=== PATIENT | male | born 1990 | race Caucasian/White ===

== ENCOUNTER 2016-09-14 13:20 | Emergency (ER) | payer SELFPAY ==
[2016-09-14 13:29] VITALS: BP 167/77
--- NOTE | 2016-09-14 13:56 | ER Document Report ---
HPI - HPI Patient complains to provider of: dental pain Pain Level: 5 Context: 26 yo male c/o dental pain x 3 days. Associated Symptoms: None Exacerbated by: Denies Relieved by: Denies Similar symptoms previously: No - ROS Systems Reviewed and Negative: Yes All other systems reviewed and negative - DERM Skin Color: Normal Past Medical History - General Information source: Patient - Social History Smoking Status: Current Every Day Smoker Frequency of alcohol use: None Drug Abuse: None Lives with: Family Family History: None - Medical History Medical History: Negative Renal/ Medical History: Denies: Hx Peritoneal Dialysis Vertical Provider Document - CONSTITUTIONAL Agree With Documented VS: Yes Exam Limitations: No Limitations - INFECTION CONTROL TRAVEL OUTSIDE OF THE [place] IN LAST 30 DAYS: No - HEENT HEENT: Atraumatic, PERRLA Mouth Diagram: 1 - fractured tooth. + pain - NECK Neck: Normal Inspection, Supple - RESPIRATORY O2 Sat by Pulse Oximetry: 96 - CARDIOVASCULAR Cardiovascular: Regular Rate, Regular Rhythm - MUSCULOSKELETAL/EXTREMETIES Musculoskeletal/Extremeties: MAEW, FROM - NEURO Level of Consciousness: Awake, Alert, Appropriate - DERM Integumentary: Warm, Dry, No Rash Course - Vital Signs Vital signs: Temp Pulse Resp BP Pulse Ox 98.4 F 51 L 18 167/77 H 96 09/14/16 13:28 09/14/16 13:28 09/14/16 13:28 09/14/16 13:28 09/14/16 13:28 Discharge - Discharge Clinical Impression: Pain, dental Condition: Stable Disposition: HOME, SELF-CARE Instructions: Penicillin V K ([facility]), Ultram ([facility]) Additional Instructions: meds as prescribed follow up with dental for further evaluation and treatment Prescriptions: Benzonatate [Tessalon Perles 100 mg Capsule] 100 mg PO Q8HP PRN #20 capsule PRN Reason: Amoxicillin 500 mg PO TID #21 tablet Tramadol HCl [Ultram 50 mg Tablet] 50 mg PO ASDIR PRN #20 tablet PRN Reason: Forms: Elevated Blood Pressure
== END 2016-09-14 14:32 ==
LOC: ER 13:20
DX: K08.89 Other specified disorders of teeth and supporting structures (principal); F17.200 Nicotine dependence, unspecified, uncomplicated
CPT/HCPCS: 99282

== ENCOUNTER 2016-10-02 17:51 | Emergency (ER) | payer SELFPAY ==
[2016-10-02 18:04] VITALS: BP 124/80
[2016-10-02] MEDS ORDERED: DIPH/PERTUSS(ACELL)/TETANUS VAC/PF 0.5 ML SYR (>=10YO) IM ONE (18:18)
--- NOTE | 2016-10-02 18:18 | ER Document Report ---
ED Medical Screen (RME) - General Chief Complaint: Laceration Stated Complaint: RIGHT HAND INJURY/LACERATION Time Seen by Provider: 10/02/16 18:17 Mode of Arrival: Ambulatory Information source: Patient TRAVEL OUTSIDE OF THE [place] 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 Bleeding is controlled . Tet is OOD - Related Data Allergies/Adverse Reactions: diphenhydramine [From Benadryl] Allergy (Verified 09/14/16 13:26) Past Medical History Renal/ Medical History: Denies: Hx Peritoneal Dialysis Physical Exam - Vital signs Vitals: Temp Pulse Resp BP Pulse Ox 98.6 F 70 22 H 124/80 99 10/02/16 17:53 10/02/16 17:53 10/02/16 17:53 10/02/16 17:53 10/02/16 17:53 Course - Vital Signs Vital signs: Temp Pulse Resp BP Pulse Ox 98.6 F 70 22 H 124/80 99 10/02/16 17:53 10/02/16 17:53 10/02/16 17:53 10/02/16 17:53 10/02/16 17:53
--- NOTE | 2016-10-02 18:37 | ER Document Report ---
ED Wound - General Chief Complaint: Laceration Stated Complaint: RIGHT HAND INJURY/LACERATION Time Seen by Provider: 10/02/16 18:17 Mode of Arrival: Ambulatory Notes: The patient is a 26-year-old male, past medical history panic attacks, presents with right hand injury after he was playing with knives and accidentally stabbed his hands. He is very anxious on my evaluation. Patient is unsure of his last tetanus shot. 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 Patient denies numbness, tingling, but is having difficulty extending his fourth finger. No active bleeding and he has no other injuries. TRAVEL OUTSIDE OF THE [place] IN LAST 30 DAYS: No - Related Data Allergies/Adverse Reactions: diphenhydramine [From Benadryl] Allergy (Verified 09/14/16 13:26) Past Medical History - General Information source: Patient - Social History Smoking Status: Current Every Day Smoker Drug Abuse: Marijuana Family History: None Renal/ Medical History: Denies: Hx Peritoneal Dialysis Review of Systems - Review of Systems Notes: REVIEW OF SYSTEMS: CONSTITUTIONAL: -fevers, -chills EENT: -eye pain, -difficulty swallowing, -nasal congestion CARDIOVASCULAR:-chest pain, -syncope. RESPIRATORY: -cough, -SOB GASTROINTESTINAL: -abdominal pain, - nausea, -vomiting, -diarrhea GENITOURINARY: -dysuria, -hematuria MUSCULOSKELETAL: -back pain, -neck pain SKIN: +right hand wound, -rash or skin lesions. HEMATOLOGIC: -easy bruising or bleeding. LYMPHATIC: -swollen, enlarged glands. NEUROLOGICAL: -altered mental status or loss of consciousness, -headache, - neurologic symptoms PSYCHIATRIC: -anxiety, -depression. ALL OTHER SYSTEMS REVIEWED AND NEGATIVE. Physical Exam - Vital signs Vitals: Temp Pulse Resp BP Pulse Ox 98.6 F 70 22 H 124/80 99 10/02/16 17:53 10/02/16 17:53 10/02/16 17:53 10/02/16 17:53 10/02/16 17:53 - Notes Notes: PHYSICAL EXAMINATION: GENERAL: Well-appearing, well-nourished and in no acute distress. HEAD: Atraumatic, normocephalic. EYES: Pupils equal round and reactive to light, extraocular movements intact, sclera anicteric, conjunctiva are normal. ENT: nares patent, oropharynx clear without exudates. Moist mucous membranes. NECK: Normal range of motion, supple without lymphadenopathy LUNGS: Breath sounds clear to auscultation bilaterally and equal. No wheezes rales or rhonchi. HEART: Regular rate and rhythm without murmurs ABDOMEN: Soft, nontender, normoactive bowel sounds. No guarding, no rebound. No masses appreciated. EXTREMITIES: Right hand with multiple lacerations on palmar surface of 2nd-5th fingers. 2nd digit with 2 cm flap, brisk capillary refill, all flexor tendons and sensation intact. 3rd digit with 3 cm linear laceration, brisk capillary refill, all flexor tendons and sensation intact. 4th digit with 2 cm linear laceration, brisk capillary refill, sensation intact, unable to flex 4th PIP joint. 5th digit with 2 cm linear laceration, brisk capillary refill, all flexor tendons and sensation intact NEUROLOGICAL: Cranial nerves grossly intact. Normal speech, normal gait. Normal sensory and motor exams. PSYCH: Normal mood, normal affect. Course - Re-evaluation Re-evalutation: Patient with multiple right finger lacerations after he grabbed a knife. Tetanus updated. X-ray does not show any fractures. Concern for fourth flexor tendon injury due to inability to flex the 4th PIP. Lacerations repaired after extensive cleaning and patient placed in a volar splint with extension into the distal fingertips to help with healing. He is instructed to follow-up with the hand surgeon tomorrow for further evaluation and treatment. 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 Will begin Keflex due to possibility of open tendon injury and to prevent flexor tenosynovitis. Patient given very strict return precautions and he understands. - Vital Signs Vital signs: Temp Pulse Resp BP Pulse Ox 98.6 F 70 22 H 124/80 99 10/02/16 17:53 10/02/16 17:53 10/02/16 17:53 10/02/16 17:53 10/02/16 17:53 - Diagnostic Test Radiology reviewed: Image reviewed, Reports reviewed Radiology results interpreted by me: Right hand x-ray: no fractures Procedures - Immobilization Right Hand Time completed: 20:55 Pre-Proc Neuro Vasc Exam: Normal Immobilizer type: Volar splint Performed by: PCT Post-Proc Neuro Vasc Exam: Normal Alignment checked and good: Yes - Laceration/Wound Repair Right 2nd digit Time completed: 20:51 Wound length (cm): 2 Wound's Depth, Shape: Flap Laceration pre-procedure: Sterile PPE donned, Chloraprep applied, Shur-Clens applied Anesthetic type: 1% Lidocaine Volume Anesthetic (mLs): 2 Wound explored: Clean Irrigated w/ Saline (mLs): 1,000 Wound Repaired With: Sutures Suture Size/Type: 5:0, Prolene Number of Sutures: 6 Layer Closure?: No Post-procedure wound care: Sterile dressing applied, Splint applied Post-procedure NV exam normal: Yes Complications: No 3rd digit Time completed: 20:53 Wound length (cm): 3 Wound's Depth, Shape: Linear Laceration pre-procedure: Sterile PPE donned, Chloraprep applied, Shur-Clens applied Anesthetic type: 1% Lidocaine Volume Anesthetic (mLs): 2 Wound explored: Clean Irrigated w/ Saline (mLs): 1,000 Wound Repaired With: Sutures Suture Size/Type: 5:0, Prolene Number of Sutures: 5 Layer Closure?: No Post-procedure wound care: Sterile dressing applied, Splint applied Post-procedure NV exam normal: Yes Complications: No 4th digit Time completed: 20:54 Wound length (cm): 3 Wound's Depth, Shape: Linear Laceration pre-procedure: Sterile PPE donned, Chloraprep applied Anesthetic type: 1% Lidocaine Volume Anesthetic (mLs): 2 Wound explored: Clean Irrigated w/ Saline (mLs): 1,000 Wound Repaired With: Sutures Suture Size/Type: 5:0, Prolene Number of Sutures: 6 Layer Closure?: No Post-procedure wound care: Sterile dressing applied, Splint applied Post-procedure NV exam normal: Yes Complications: No 5th digit Time completed: 20:55 Wound length (cm): 3 Wound's Depth, Shape: Linear Laceration pre-procedure: Sterile PPE donned, Sterile drapes applied, Shur- Clens applied Anesthetic type: 1% Lidocaine Volume Anesthetic (mLs): 2 Wound explored: Clean Irrigated w/ Saline (mLs): 1,000 Wound Repaired With: Sutures Suture Size/Type: 5:0, Prolene Number of Sutures: 5 Layer Closure?: No Post-procedure wound care: Sterile dressing applied, Splint applied Post-procedure NV exam normal: Yes Complications: No Discharge - Discharge Clinical Impression: Laceration of hand with tendon involvement Qualifiers: Encounter type: initial encounter Laterality: right Qualified Code(s): S61.411A - Laceration without foreign body of right hand, initial encounter Condition: Stable Disposition: HOME, SELF-CARE Additional Instructions: Take the full course of antibiotics as instructed. Motrin for pain and Tylenol with codeine for severe pain. Keep your hand in the splint and you must follow- up with the hand surgeon tomorrow. Return to the ER if you notice any worsening redness, fevers or discharge out of your wounds. LACERATION CARE: Your laceration has been sutured to keep the skin edges aligned during healing. The time of suture removal depends on the nature and location of your cut. Please follow the care instructions the doctor has outlined for you and return for further care, according to the schedule you've been given. Keep the wound and dressing clean. Unless you were told otherwise, you may shower daily, blotting the wound dry with a clean, unused towel. At other times, If the dressing gets wet or blood soaked, remove it and blot the wound dry, then reapply a new dressing. Unless you were instructed otherwise, dressings should be changed at least daily. If any signs of infection occur (swelling, redness, drainage, increasing tenderness, red streaks, tender lumps in the armpit or groin above the laceration, or fever), see the doctor immediately. SOAP CLEANSING: Gently wash the wound daily using a mild soap (like Ivory, Phisoderm, Neutrogena). Use warm water, rubbing gently until all debris, ooze, and crusting have been washed from the wound. Allow to dry briefly (about 10 minutes) after cleaning. Repeat this cleansing at least three times a day for the first two days and then once or twice a day. ANTIBIOTIC OINTMENT PROTECTION: Your wounds are such that dressing them is not practical or optional. After cleansing, you should apply a thin coating of antibiotic ointment ( Bacitracin, not Neosporin) to the wounds at least three times daily. This lessens infection risk, and may decrease the amount of scarring. Use a q-tip or dull butter knife, not your finger, to apply this ointment. Any debris or ooze which builds up in the ointment should be gently rubbed off with a sterile gauze pad. Harder crusting may need to be gently scrubbed off with a clean wash cloth with soap and warm water, perhaps applying a warm, wet wash cloth to the wound for ten minutes first. Development of redness, severe itching, or blistering may mean allergy to the ointment. See the doctor. TETANUS IMMUNIZATION GIVEN: You have been given an immunization against tetanus. Please record this in your records. In general, a booster is needed only once every 10 years. The tetanus shot protects against tetanus or "lockjaw," which is a complication of certain wound infections (the tetanus shot cannot protect against the actual infection). The immunization site may become warm and red due to local reaction. If this occurs, apply warm compresses and take aspirin or ibuprofen to reduce inflammation and discomfort. Return for evaluation if the reaction becomes severe. PROPHYLACTIC ANTIBIOTIC: The antibiotics which have been prescribed are designed to decrease the risk of infection. Only certain types of wounds benefit from this -- the typical cut, scrape, or burn DOES NOT require antibiotics. Of course, infection can still occur despite the use of prophylactic antibiotics. Your wound will heal with less chance of an infectious complication if you take the medication as directed. The most important dose is the FIRST dose, so don't delay filling the prescription! ORAL NARCOTIC MEDICATION: You have been given a prescription for pain control. This medication is a narcotic. It's best taken with food, as nausea can result if taken on an empty stomach. Don't operate machinery or drive within six hours of taking this medication. Do not combine this medicine with alcohol, or with any medication which can cause sedation (such as cold tablets or sleeping pills) unless you get permission from the physician. Narcotics tend to cause constipation. If possible, drink plenty of fluids and eat a diet high in fiber and fruits. FOLLOW-UP CARE: Please return in 2 days or follow-up with the hand surgeon for an infection check and dressing change. Your sutures should be removed in 5-7 days. To facilitate a timely removal of your sutures, you may return to the Emergency Department at [facility]. You do not need to call for an appointment, but the best time to come in for suture removal is early in the morning. If you have been referred to another physician for follow-up care, call that physicians office for an appointment as you were instructed. If you experience a significant change in your laceration, or if you are concerned there may be an infection (swelling, redness, drainage, increasing tenderness, red streaks, tender lumps in the armpit or groin above the laceration, or fever) , return to the Emergency Department immediately re-evaluation. Prescriptions: Acetaminophen with Codeine [Tylenol #3 Tablet] 1 each PO Q4HP PRN #10 tablet PRN Reason: Cephalexin Monohydrate [Keflex 500 mg Capsule] 500 mg PO TID #20 capsule Forms: Return to Work Referrals: LATONYA HICKMAN, [ACTIVE STAFF] - Follow up as needed
[2016-10-02] MEDS ORDERED: LIDOCAINE 1% INJ-PF (10 MG/ML) 30 ML SDV INJ ONE (18:42)
[2016-10-02] MEDS ORDERED: MIDAZOLAM HCL SYRUP 10 MG/5 ML UDC PO ONE (18:42)
[2016-10-02] MEDS ORDERED: CEPHALEXIN 500 MG CAPSULE PO ONE (20:37)
--- NOTE | 2016-10-02 20:48 | RADIOLOGY REPORT (SQ) ---
EXAM DESCRIPTION: HAND RIGHT 3 VIEWS COMPLETED DATE/TIME: 10/02/2016 8:29 pm REASON FOR STUDY: right hand injury COMPARISON: None. EXAM PARAMETERS: NUMBER OF VIEWS: Three views. TECHNIQUE: AP, lateral and oblique radiographic images acquired of the right hand. LIMITATIONS: None. FINDINGS: MINERALIZATION: Normal. BONES: No acute fracture or dislocation. No worrisome bone lesions. JOINTS: No effusions. SOFT TISSUES: No soft tissue swelling. No foreign body. OTHER: No other significant finding. IMPRESSION: No fracture. TECHNICAL DOCUMENTATION: JOB ID: [id number] [employer]- All Rights Reserved
== END 2016-10-02 21:05 | disposition home or self-care (01) ==
LOC: ER 17:51
PROC: 0HQFXZZ Repair Right Hand Skin, External Approach (ICD-10-PCS; principal; 2016-10-02)
DX: S61.214A Laceration without foreign body of right ring finger without damage to nail, initial encounter (principal); S66.124A Laceration of flexor muscle, fascia and tendon of right ring finger at wrist and hand level, initial encounter; S61.210A Laceration without foreign body of right index finger without damage to nail, initial encounter; S61.216A Laceration without foreign body of right little finger without damage to nail, initial encounter; S61.212A Laceration without foreign body of right middle finger without damage to nail, initial encounter; W26.0XXA Contact with knife, initial encounter; Y93.89 Activity, other specified; Y92.009 Unspecified place in unspecified non-institutional (private) residence as the place of occurrence of the external cause; Z88.8 Allergy status to other drugs, medicaments and biological substances; F17.200 Nicotine dependence, unspecified, uncomplicated; Z23 Encounter for immunization
CPT/HCPCS: 99283; 73130; 90715; 12004; J3490

== ENCOUNTER 2016-10-10 14:00 | Emergency (ER) | payer OTHER ==
--- NOTE | 2016-10-10 14:55 | ER Document Report ---
HPI - HPI Patient complains to provider of: suture removal Onset: Last week Onset/Duration: Persistent Quality of pain: Achy Pain Level: 1 Context: Patient presents for suture removal to laceration to right hand. Patient states that he was told to follow-up with orthopedic hand specialist but he does not have insurance so he did not call anybody for follow-up. Patient also states that he removed the splint that they had placed. Patient complains of inability to flex his right third, fourth, and fifth fingers. Associated Symptoms: Other - Hand laceration with decreased range of motion to fingers of right hand Exacerbated by: Denies Relieved by: Denies Similar symptoms previously: No Recently seen / treated by doctor: Yes - ROS ROS below otherwise negative: Yes Systems Reviewed and Negative: Yes All other systems reviewed and negative - CONSTITUTIONAL Constitutional: DENIES: Fever, Chills - MUSCULOSKELETAL Notes: Inability to flex third, fourth, fifth fingers of right hand - DERM Skin Color: Normal Skin Problems: Laceration Past Medical History - General Information source: Patient - Social History Smoking Status: Current Every Day Smoker Drug Abuse: None Family History: None Renal/ Medical History: Denies: Hx Peritoneal Dialysis Psychiatric Medical History: Reports: Hx Anxiety, Hx Depression Surgical Hx: Negative - Immunizations Immunizations up to date: Yes Hx Diphtheria, Pertussis, Tetanus Vaccination: No Vertical Provider Document - CONSTITUTIONAL Agree With Documented VS: Yes Exam Limitations: No Limitations - INFECTION CONTROL TRAVEL OUTSIDE OF THE [place] IN LAST 30 DAYS: No - HEENT HEENT: Atraumatic, Normocephalic - NECK Neck: Normal Inspection - RESPIRATORY Respiratory: Breath Sounds Normal, No Respiratory Distress O2 Sat by Pulse Oximetry: 100 - CARDIOVASCULAR Cardiovascular: Regular Rate, Regular Rhythm Pulses: Normal: Radial - MUSCULOSKELETAL/EXTREMETIES Musculoskeletal/Extremeties: Tender - Mild tenderness to lacerations of right hand fingers 2 through 5, No Edema Notes: Patient with apparent flexor tendon deficit involving the right third, fourth and fifth fingers. - NEURO Level of Consciousness: Awake, Appropriate Motor/Sensory: negative: No Motor Deficit - DERM Integumentary: Warm, Dry, Laceration - Sutured laceration to volar aspect of right second, third, fourth, and fifth fingers, wound edges approximated, no erythema or swelling, no concern for infection Course - Re-evaluation Re-evalutation: 10/10/16 14:54 Call placed nuclear waste process operator for consultation with hand specialist, message left for return call Spoke with production control plannerKalin, who will try to help facilitate follow-up as an outpatient 10/10/16 15:[address] hickman who recommends putting patient in a dorsal blocking splint and having patient follow up in the office for further evaluation 10/10/16 Patient refused to remove string bracelets from right wrist for splinting - Vital Signs Vital signs: Temp Pulse Resp BP Pulse Ox 98.8 F 50 L 16 157/68 H 100 10/10/16 14:11 10/10/16 14:11 10/10/16 14:11 10/10/16 14:11 10/10/16 14:11 Procedures - Immobilization Right Hand Pre-Proc Neuro Vasc Exam: Normal Immobilizer type: Other - Dorsal blocking splint Performed by: PCT Post-Proc Neuro Vasc Exam: Normal Alignment checked and good: Yes Discharge - Discharge Clinical Impression: Elevated blood pressure reading, Encounter for removal of sutures Injury of flexor tendon of right hand Qualifiers: Encounter type: initial encounter Qualified Code(s): S66.801A - Unspecified injury of other specified muscles, fascia and tendons at wrist and hand level, right hand, initial encounter Condition: Stable Disposition: HOME, SELF-CARE Instructions: Splint Precautions ([facility]), Suture Removal, Tendon Laceration Referral ([facility]) Additional Instructions: Return immediately for any new or worsening symptoms Followup with your primary care provider, call tomorrow to make a followup appointment Follow-up with orthopedic hand specialist, call their office for a follow-up appointment. They work out payment plans with self-pay patients Forms: Elevated Blood Pressure Referrals: LATONYA HICKMAN, [ACTIVE STAFF] - Follow up tomorrow
[2016-10-10 16:20] VITALS: BP 174/78
== END 2016-10-10 16:20 | disposition home or self-care (01) ==
LOC: ER 14:00
PROC: 2W3CX1Z Immobilization of Right Lower Arm using Splint (ICD-10-PCS; principal; 2016-10-10)
DX: S61.411D Laceration without foreign body of right hand, subsequent encounter (principal); R03.0 Elevated blood-pressure reading, without diagnosis of hypertension; X58.XXXD Exposure to other specified factors, subsequent encounter

== ENCOUNTER 2016-10-14 10:33 | Day surgery (SDC) | payer OTHER ==
[~2016-10-14 10:33] MED LIST: BUPIVACAINE HCL 0.5 % INJ/PF 30 ML SDV ONE
[2016-10-14 11:22] LABS: ABSOLUTE BASOPHILS # (AUTO) 0.1 10^3/uL (0.0-0.2); ABSOLUTE EOSINOPHILS # (AUTO) 0.2 10^3/uL (0.0-0.6); ABSOLUTE LYMPHOCYTES (AUTO) 1.1 10^3/uL (0.5-4.7); ABSOLUTE MONOCYTES (AUTO) 0.6 10^3/uL (0.1-1.4); ABSOLUTE NEUT (AUTO) 4.5 10^3/uL (1.7-8.2); BASOPHILS % (AUTO) 0.9 % (0-2); EOSINOPHILS % (AUTO) 3.1 % (0-6); HEMATOCRIT 44.1 % (37.9-51.0); HEMOGLOBIN 15.2 g/dL (13.5-17.0); HGB HCT DIFFERENCE 1.5; LYMPHOCYTES % (AUTO) 16.5 % (13-45); MEAN CORPUSCULAR HEMOGLOBIN 31.2 pg (27.0-33.4); MEAN CORPUSCULAR HGB CONC 34.6 g/dL (32.0-36.0); MEAN CORPUSCULAR VOLUME 90 fl (80-97); RED BLOOD COUNT 4.89 10^6/uL (4.35-5.55); RED CELL DISTRIBUTION WIDTH 12.9 % (11.5-14.0); SEGMENTED NEUTROPHILS % (AUTO) 70.5 % (42-78); WHITE BLOOD COUNT 6.4 10^3/uL (4.0-10.5)
--- NOTE | 2016-10-14 11:44 | RADIOLOGY REPORT (SQ) ---
EXAM DESCRIPTION: CHEST SINGLE VIEW COMPLETED DATE/TIME: 10/14/2016 11:25 am REASON FOR STUDY: PREOP COMPARISON: None. EXAM PARAMETERS: NUMBER OF VIEWS: One view. TECHNIQUE: Single frontal radiographic view of the chest acquired. RADIATION DOSE: NA LIMITATIONS: None. FINDINGS: LUNGS AND PLEURA: No opacities, masses or pneumothorax. No pleural effusion. MEDIASTINUM AND HILAR STRUCTURES: No masses. Contour normal. HEART AND VASCULAR STRUCTURES: Heart normal in size. Normal vasculature. BONES: No acute findings. HARDWARE: None in the chest. OTHER: No other significant finding. IMPRESSION: NO ACUTE RADIOGRAPHIC FINDING IN THE CHEST. TECHNICAL DOCUMENTATION: JOB ID: [id number]
[2016-10-14 11:56] LABS: ANION GAP 11 (5-19); BLOOD UREA NITROGEN 12 mg/dL (7-20); CALCIUM 10.1 mg/dL (8.4-10.2); CARBON DIOXIDE 24 mmol/L (22-30); CHLORIDE 104 mmol/L (98-107); CREATININE RESULT 0.85 mg/dL (0.52-1.25); GLUCOSE 85 mg/dL (75-110); POTASSIUM 4.5 mmol/L (3.6-5.0); SODIUM 139.2 mmol/L (137-145)
[2016-10-14 12:07] LABS: APPEARANCE,URINE CLEAR; BILIRUBIN,URINE NEGATIVE (NEGATIVE); GLUCOSE, URINE NEGATIVE (NEGATIVE); KETONES,URINE NEGATIVE (NEGATIVE); LEUKOCYTE ESTERASE,URINE NEGATIVE (NEGATIVE); NITRITE,URINE NEGATIVE (NEGATIVE); PROTEIN,URINE NEGATIVE (NEGATIVE); UROBILINOGEN,URINE NEGATIVE mg/dL (<2.0)
[2016-10-14] MEDS ORDERED: FENTANYL CITRATE INJ/PF 250 MCG/5 ML AMPULE ONE ×2 (12:19→14:39)
[2016-10-14] MEDS ORDERED: MIDAZOLAM 2 MG/2 ML INJ ONE (12:19)
[2016-10-14] MEDS ORDERED: HYDROMORPHONE HCL INJ/PF 2 MG/ML AMPULE ONE (12:20)
[2016-10-14] MEDS ORDERED: EPHEDRINE SULFATE INJ 50 MG/1 ML AMPULE ONE (12:20)
[2016-10-14] MEDS ORDERED: PROPOFOL INJ 200 MG/20 ML VIAL IV ONE (12:20)
[2016-10-14] MEDS ORDERED: ACETAMINOPHEN 100 ML IV ONE (12:20)
[2016-10-14] MEDS ORDERED: LOPERAMIDE HCL 2 MG CAPSULE PO ONE (12:45)
[2016-10-14] MEDS ORDERED: OXYCODONE-ACETAMINOPHEN 5-325 MG TABLET PO PRN ×3 (17:27→18:22)
[2016-10-14] MEDS ORDERED: HYDROMORPHONE HCL INJ/PF 2 MG/ML AMPULE IV PRN (17:27)
[2016-10-14] MEDS ORDERED: ONDANSETRON HCL INJ/PF 4 MG/2 ML SDV IV PRN (17:27)
--- NOTE | 2016-10-14 17:30 | PDOC DISCHARGE SUMMARY ---
Discharge Summary (SDC) - Discharge Final Diagnosis: Right Middle, Ring, Small Finger Flexor Tendon Laceration, Ulnar Digital Nerve Laceration Middle/Small Finger Date of Surgery: 10/14/16 Discharge Date: 10/14/16 Condition: Good Treatment or Instructions: Schedule Follow Up w/ Dr. Apollo Quezada @ [facility] for Surgery to be seen in 10-14 days or as scheduled [place]: [place]: [place]: Ice and elevate Keep splint clean/dry/intact. If your fingers become numb please unwrap the Tani wrap but leave the splint in place, if the sensation does not return within 30 minutes please return to the emergency department. Please use ibuprofen (Motrin or Advil) 600-800 mg every 8 hours as needed for pain or fever. You may also use acetaminophen (Tylenol) 1000 mg every 4-6 hours as needed for pain or fever. Please be aware that many medications contain acetaminophen, do not exceed a total of 1000 mg of acetaminophen every 6 hours. If ibuprofen and acetaminophen are not sufficient for your pain you may take the Percocet. Please be aware that the Percocet does contain Tylenol. Stool softener of choice when on pain medication. Prescriptions: Oxycodone HCl/Acetaminophen [Percocet 7.5-325 mg Tablet] 1 - 2 tab PO ASDIR PRN #50 tab PRN Reason: Discharge Diet: As Tolerated Respiratory Treatments at Home: Deep Breathing/Coughing Discharge Activity: No Lifting Over 10 Pounds, No Lifting/Push/Pulling Report the Following to Your Physician Immediately: Fever over 101 Degrees, Unusual Bleeding, Redness, Swelling, Warmth, Increased Soreness
--- NOTE | 2016-10-14 17:43 | Operative Report ---
Operative Report DATE OF SURGERY: 10/14/16 PREOPERATIVE DIAGNOSIS: Right Middle, Ring, Small Finger Flexor Tendon Laceration, Digital Nerve Laceration POSTOPERATIVE DIAGNOSIS: Right Middle, Ring, Small Finger Zone II Flexor Tendon Laceration. Ulnar Digital Nerve Laceration Middle, Small Finger OPERATION: 1. Repair Right Middle, Ring, Small Finger Zone II Flexor Tendon Laceration. 2. Repair Ulnar Digital Nerve Laceration Middle, Small Finger SURGEON: LATONYA HICKMAN ANESTHESIA: GA COMPLICATIONS: None ESTIMATED BLOOD LOSS: Minimal PROCEDURE: Indication for above procedure: 26-year-old male who sustained a laceration to his middle, ring and small fingers resulting in flexor tendon injuries and possible digital nerve involvement. Patient was delayed on follow-up to me upon follow-up we discussed treatment options including prognosis and operative intervention. Risks and benefits were explained to the patient who verbalized understanding and consented for the procedure. Procedure In Detail: Patient was seen and evaluated in the preoperative holding area. The RIGHT upper extremity was initialized and marked. Patient received 2g of Ancef IV for bacterial prophylaxis. Patient was taken back to the operative room where transferred to the operative table and placed under general anesthesia. Once they were adequately anesthetized a nonsterile tourniquet was placed on the upper extremity. A surgical team debriefing was performed ensuring all instrumentation was available, the surgical procedure was discussed with possible concerns reviewed. The upper extremity was prepped with chlorhexidine and alcohol and draped in a sterile fashion. A timeout was done identifying correct patient, procedure and extremity everyone in attendance agree with this and verbalized no concerns. The extremity was exsanguinated the tourniquet was inflated to 250 mmHg. Patient's laceration on the middle finger was extended proximally and distally along the mid lateral line and Via Maryann extensions across the MP joint. Blunt dissection was performed the radial neurovascular bundle was identified and remained in continuity. I then carefully elevated the skin flap and the ulnar neurovascular bundle was identified the ulnar artery remained intact however there was disruption of the ulnar digital nerve at the level of the middle phalanx. This was neurolysed proximally and distally to allow for later repair. I then opened the A3 ronald and a portion of the A4 ronald and was able to retrieve the FDP tendon. The ulnar slip of the FDS remained intact the radial slip was debrided to avoid increased force of work. Distally the FDP tendon was identified indicating laceration of zone II. The tendon was then secured with a 22-gauge needle and a dorsal simple running stitch was utilized the ends were held with hemostats to allow completion of the epitendinous suture after core repair. I then utilized a 40 Fiber Loop suture taking 1 cm bites along the proximal and distal aspect of the tendon which was reapproximated utilizing a cruciate stitch with this I was able to successfully repair the tendon with a 8 stranded suture repair. The epitendinous suture was then completed once again taking 2 mm bites along the palmar aspect. There was no evidence of residual tendon gapping I had good approximation of the tendon. Once complete I turned my attention to the ring finger. Patient's laceration on the ring finger was extended proximally and distally along the mid lateral line and Via Maryann extensions across the MP joint. Blunt dissection was performed the radial neurovascular bundle was identified and remained in continuity. I then carefully elevated the skin flap and the ulnar neurovascular bundle was identified which remained in continuity without disruption. I then opened the A3 ronald and a portion of the A4 ronald and was able to retrieve the FDP tendon. The FDS was lacerated and thus debrided to avoid increased force of flexion work. Distally the FDP tendon was identified indicating laceration of zone II. The tendon was then secured with a 22-gauge needle and a dorsal simple running stitch was utilized the ends were held with hemostats to allow completion of the epitendinous suture after core repair. I then utilized a 40 Fiber Loop suture taking 1 cm bites along the proximal and distal aspect of the tendon which was reapproximated utilizing a cruciate stitch with this I was able to successfully repair the tendon with a 8 stranded suture repair. The epitendinous suture was then completed once again taking 2 mm bites along the palmar aspect. There was no evidence of residual tendon gapping I had good approximation of the tendon. Once complete I turned my attention to the small finger. Patient's laceration on the small finger was extended proximally and distally along the mid lateral line and Via Maryann extensions across the MP joint. Blunt dissection was performed the radial neurovascular bundle was identified and remained in continuity. I then carefully elevated the skin flap and the ulnar neurovascular bundle was identified the ulnar artery remained intact however there was disruption of the ulnar digital nerve at the level of the proximal phalanx. This was neurolysed proximally and distally to allow for later repair. I then opened the A3 ronald and a portion of the A2 ronald and was able to retrieve the FDP tendon. The radial and ulnar slips of the FDS were disruption and thus debrided. Distally the FDP tendon was identified after carefully opening a portion of A3 indicating laceration of zone II. The tendon was then secured with a 22-gauge needle and a dorsal simple running stitch was utilized the ends were held with hemostats to allow completion of the epitendinous suture after core repair. I then utilized a 40 Fiber Loop suture taking 1 cm bites along the proximal and distal aspect of the tendon which was reapproximated utilizing a cruciate stitch with this I was able to successfully repair the tendon with a 8 stranded suture repair. The epitendinous suture was then completed once again taking 2 mm bites along the palmar aspect. There was no evidence of residual tendon gapping I had good approximation of the tendon. The tourniquet was then deflated compression was held for 2 minutes. Any peripheral vasculature was coagulated bipolar cautery into the wounds were dry. Patient normal capillary refill I then turned my attention to the digital nerve repair. Once the tourniquet was deflated for 15 minutes it was reinflated at 250 mmHg. With the use of microscope magnification the ulnar digital nerve of the middle finger was repaired. The proximal distal aspect was debrided until normal appearing fascicles were identified. A 3 mm x 15 mm nerve conduit Axogen connector was then placed to allow for later protection of my nerve repair. The ulnar digital nerve was repaired with 9-0 nylon suture 2. I then pulled the nerve conduit over the repair site securing it proximally and distally with 8-0 nylon. I then turned my attention to the small finger. At the level of the proximal phalanx the proximal distal aspect was identified once again the fascicles were debrided until normal-appearing utilized a 2 mm x 15 mm nerve conduit Axogen connector. The nerve was repaired utilizing 1 9-0 suture and the conduit was secured proximally and distally with 8-0 nylon. There is no evidence of gapping of the nerve repairs. They were repaired without tension and stable throughout digit range of motion. The wounds were then copiously irrigated with normal saline. Skin was closed with interrupted 4-0 nylon suture. 20 cc of 0.5% Marcaine with epinephrine was injected for postoperative pain control. Wound was dressed with Xeroform 4 x 4' s and a dorsal blocking splint with the wrist at 20 of flexion MP joints at 30 of flexion and the IP joint at neutral. Tourniquet was deflated patient had normal capillary refill and skin turgor. Postoperative plan: Patient will follow-up in the office in 2 weeks to follow up with me for suture removal he will be started on occupational therapy prior to his follow-up appointment as per zone II flexor tendon repair.
[2016-10-14] MEDS ORDERED: PROMETHAZINE HCL INJ 25 MG/1 ML VIAL IV PRN ×2 (18:22)
[2016-10-14] MEDS ORDERED: FENTANYL CITRATE INJ/PF 100 MCG/2 ML AMPUL IV PRN ×3 (18:22)
[2016-10-14] MEDS ORDERED: MEPERIDINE HCL/PF INJ 25 MG/1 ML DISP.SYRIN IV PRN (18:22)
[2016-10-14] MEDS ORDERED: DIPHENHYDRAMINE HCL 50 MG/ML VIAL IV PRN (18:22)
[2016-10-14] MEDS ORDERED: MORPHINE SULFATE 10 MG/ML INJ IV PRN (18:22)
[2016-10-14] MEDS ORDERED: ONDANSETRON HCL INJ/PF 4 MG/2 ML SDV ONE (19:08)
[2016-10-14] MEDS ORDERED: DEXAMETHASONE SOD PHOSPHATE INJ 4 MG/1 ML VIAL ONE (19:08)
[2016-10-14] MEDS ORDERED: SUCCINYLCHOLINE CHLORIDE INJ 200 MG/10 ML VIAL ONE (19:08)
[2016-10-14 19:24] VITALS: BP 142/75
--- NOTE | 2016-10-15 00:06 | EKG REPORT ---
SEVERITY:- ABNORMAL ECG - SINUS RHYTHM ST ELEVATION SUGGESTS PERICARDITIS : Confirmed by: Randal Grissom 15-Oct-2016 00:05:16
== END 2016-10-14 19:20 | disposition home or self-care (01) ==
LOC: OROUT 10:33
PROVIDERS: ATTEND Orthopaedic Surgery
PROC: 01U407Z Supplement Ulnar Nerve with Autologous Tissue Substitute, Open Approach (ICD-10-PCS; 2016-10-14)
PROC: 0LQ70ZZ Repair Right Hand Tendon, Open Approach (ICD-10-PCS; principal; 2016-10-14 12:30)
DX: S66.124A Laceration of flexor muscle, fascia and tendon of right ring finger at wrist and hand level, initial encounter (principal); S66.122A Laceration of flexor muscle, fascia and tendon of right middle finger at wrist and hand level, initial encounter; S66.126A Laceration of flexor muscle, fascia and tendon of right little finger at wrist and hand level, initial encounter; S64.492A Injury of digital nerve of right middle finger, initial encounter; S64.494A Injury of digital nerve of right ring finger, initial encounter; S64.496A Injury of digital nerve of right little finger, initial encounter; F17.210 Nicotine dependence, cigarettes, uncomplicated; X58.XXXA Exposure to other specified factors, initial encounter
CPT/HCPCS: 36415; 85025; 80048; 81001; 71010; 93005; 93010; 26356 ×3; 64910 ×3; J2250; J1100; J3010; J1170; J0330; J2405; J2704; J0131; 1810; J3490

== ENCOUNTER 2017-01-02 17:20 | Emergency (ER) | payer OTHER ==
[2017-01-02] MEDS ORDERED: NORMAL SALINE 1000 ML 1,000 ML IV ONE (18:58)
[2017-01-02] MEDS ORDERED: PANTOPRAZOLE SODIUM 40 MG VIAL IV ONE (18:58)
--- NOTE | 2017-01-02 18:59 | ER Document Report ---
ED Medical Screen (RME) - General Chief Complaint: Vomiting Stated Complaint: VOMITING Time Seen by Provider: 01/02/17 18:58 Notes: Patient states she has diffuse abdominal pain worse in the epigastric area. He states he had bright red vomitus on Monday. He states since then he has vomited multiple times at each time it has been dark black. TRAVEL OUTSIDE OF THE [place] IN LAST 30 DAYS: No - Related Data Allergies/Adverse Reactions: diphenhydramine [From Benadryl] Allergy (Verified 01/02/17 17:28) unknown Home Medications: Current Home Medications Fluoxetine HCl [Prozac] 40 mg PO DAILY 01/02/17 [History] Past Medical History - Past Medical History Cardiac Medical History: Denies: Hx Coronary Artery Disease, Hx Heart Attack, Hx Hypertension Pulmonary Medical History: Denies: Hx Asthma, Hx Bronchitis, Hx COPD, Hx Pneumonia Neurological Medical History: Denies: Hx Cerebrovascular Accident, Hx Seizures Renal/ Medical History: Denies: Hx Peritoneal Dialysis Musculoskeltal Medical History: Denies Hx Arthritis Psychiatric Medical History: Reports: Hx Anxiety, Hx Depression - Immunizations Immunizations up to date: Yes Hx Diphtheria, Pertussis, Tetanus Vaccination: Yes Physical Exam - Vital signs Vitals: Temp Pulse Resp BP Pulse Ox 98.6 F 59 L 18 140/80 H 98 01/02/17 17:28 01/02/17 17:28 01/02/17 17:28 01/02/17 17:28 01/02/17 17:28 Course - Vital Signs Vital signs: Temp Pulse Resp BP Pulse Ox 98.6 F 59 L 18 140/80 H 98 01/02/17 17:28 01/02/17 17:28 01/02/17 17:28 01/02/17 17:28 01/02/17 17:28
[2017-01-02 19:25] LABS: ABSOLUTE EOSINOPHILS # (AUTO) 0.1 10^3/uL (0.0-0.6); ABSOLUTE LYMPHOCYTES (AUTO) 0.9 10^3/uL (0.5-4.7); ABSOLUTE MONOCYTES (AUTO) 0.7 10^3/uL (0.1-1.4); ABSOLUTE NEUT (AUTO) 5.4 10^3/uL (1.7-8.2); BASOPHILS % (AUTO) 0.4 % (0-2); EOSINOPHILS % (AUTO) 0.8 % (0-6); HEMATOCRIT 47.6 % (37.9-51.0); HEMOGLOBIN 16.4 g/dL (13.5-17.0); HGB HCT DIFFERENCE 1.6; LYMPHOCYTES % (AUTO) 12.6 % (13-45); MEAN CORPUSCULAR HEMOGLOBIN 30.7 pg (27.0-33.4); MEAN CORPUSCULAR HGB CONC 34.3 g/dL (32.0-36.0); MEAN CORPUSCULAR VOLUME 89 fl (80-97); RED BLOOD COUNT 5.33 10^6/uL (4.35-5.55); RED CELL DISTRIBUTION WIDTH 12.7 % (11.5-14.0); SEGMENTED NEUTROPHILS % (AUTO) 76.2 % (42-78); WHITE BLOOD COUNT 7.1 10^3/uL (4.0-10.5)
[2017-01-02 19:49] LABS: ALANINE AMINOTRANSFERASE 39 U/L (21-72); ALBUMIN 5.1 g/dL (3.5-5.0); ALKALINE PHOSPHATASE 62 U/L (38-126); ANION GAP 16 (5-19); ASPARTATE AMINO TRANSFERASE 33 U/L (17-59); BILIRUBIN,DIRECT 0.3 mg/dL (0.0-0.4); BILIRUBIN,TOTAL 0.8 mg/dL (0.2-1.3); BLOOD UREA NITROGEN 15 mg/dL (7-20); CARBON DIOXIDE 28 mmol/L (22-30); CHLORIDE 99 mmol/L (98-107); CREATININE RESULT 1.02 mg/dL (0.52-1.25); GLUCOSE 78 mg/dL (75-110); LIPASE 37.1 U/L (23-300); POTASSIUM 4.7 mmol/L (3.6-5.0); SODIUM 142.5 mmol/L (137-145); TOTAL PROTEIN 7.9 g/dL (6.3-8.2)
[2017-01-02] MEDS ORDERED: METOCLOPRAMIDE HCL ORAL SOLN 10 MG/10 ML UDCUP PO ONE (20:32)
[2017-01-02] MEDS ORDERED: LIDOCAINE 2% VISCOUS SOLN 20 ML UDCUP PO ONE (20:32)
[2017-01-02] MEDS ORDERED: MAG HYDROX/AL HYDROX/SIMETH SUSP 30 ML UDCUP PO ONE (20:32)
--- NOTE | 2017-01-02 20:32 | ER Document Report ---
ED GI/ - General Chief Complaint: Vomiting Stated Complaint: VOMITING Time Seen by Provider: 01/02/17 18:58 Notes: Patient is a 26-year-old male who presents emergency department complaining of nausea, vomiting and epigastric pain since Monday. Patient states that he had gone out some friends Monday night and had some alcohol and woke up Monday think you should however. Patient states that he has been able to tolerate p.o. intermittently but occasionally still is throwing up. States it improves with smoking marijuana. The reason he was sent to the ER today was that he had one episode of dark coffee-ground emesis. Otherwise he denies any lightheadedness, near syncope, headaches, weakness. ROS significant for loose stools without bright red blood per rectum or melena. TRAVEL OUTSIDE OF THE [place] IN LAST 30 DAYS: No - Related Data Allergies/Adverse Reactions: diphenhydramine [From Benadryl] Allergy (Verified 01/02/17 17:28) unknown Home Medications: Current Home Medications Fluoxetine HCl [Prozac] 40 mg PO DAILY 01/02/17 [History] Past Medical History - Social History Smoking Status: Current Every Day Smoker Family History: None Patient has suicidal ideation: No Patient has homicidal ideation: No - Past Medical History Cardiac Medical History: Denies: Hx Coronary Artery Disease, Hx Heart Attack, Hx Hypertension Pulmonary Medical History: Denies: Hx Asthma, Hx Bronchitis, Hx COPD, Hx Pneumonia Neurological Medical History: Denies: Hx Cerebrovascular Accident, Hx Seizures Renal/ Medical History: Denies: Hx Peritoneal Dialysis Musculoskeltal Medical History: Denies Hx Arthritis Psychiatric Medical History: Reports: Hx Anxiety, Hx Depression - Immunizations Immunizations up to date: Yes Hx Diphtheria, Pertussis, Tetanus Vaccination: Yes Review of Systems - Review of Systems Constitutional: No symptoms reported Cardiovascular: No symptoms reported Respiratory: No symptoms reported Gastrointestinal: See HPI -: Yes All other systems reviewed and negative Physical Exam - Vital signs Vitals: Temp Pulse Resp BP Pulse Ox 98.6 F 59 L 18 140/80 H 98 01/02/17 17:28 01/02/17 17:28 01/02/17 17:28 01/02/17 17:28 01/02/17 17:28 - Notes Notes: PHYSICAL EXAM GENERAL: Alert, interacts well. HEAD: Normocephalic, atraumatic. EYES: Pupils equal, round, and reactive to light. Extraocular movements intact. ENT: Oral mucosa moist, tongue midline. NECK: Full range of motion. Supple. Trachea midline. LUNGS: Clear to auscultation bilaterally, no wheezes, rales, or rhonchi. No respiratory distress. HEART: Regular rate and rhythm. No murmurs, gallops, or rubs. ABDOMEN: Soft, nondistended, nontender. No guarding, rebound, or rigidity.. Bowel sounds present in all 4 quadrants. EXTREMITIES: Moves all 4 extremities spontaneously. No edema, radial and dorsalis pedis pulses 2/4 bilaterally. No cyanosis. NEUROLOGICAL: Alert and oriented x4. Normal speech. PSYCH: Normal affect, normal mood. SKIN: Warm, dry, normal turgor. No rashes or lesions noted. Course - Re-evaluation Re-evalutation: 01/02/17 21:46 Patient is a 26-year-old male is hemodynamically stable, no acute distress afebrile. CBC stable without evidence of anemia. Patient with a GBS of 0 indicating a low risk GI bleed. Patient at this time does not indicate requiring blood transfusion, endoscopy or surgery. Patient is tolerating p.o. in the department and request more. Will discharge home on PPI, Carafate and nausea medications to follow-up with primary care tomorrow and referral to GI. Patient agrees with plan. Discussed strict return precautions otherwise stable for discharge. - Vital Signs Vital signs: Temp Pulse Resp BP Pulse Ox 97.9 F 63 18 137/65 H 99 01/02/17 22:15 01/02/17 22:15 01/02/17 22:15 01/02/17 22:15 01/02/17 22:15 - Laboratory Result Diagrams: 01/02/17 19:10 01/02/17 19:10 Laboratory results interpreted by me: 01/02/17 01/02/17 19:10 19:10 Lymphocytes % 12.6 L Albumin 5.1 H Discharge - Discharge Clinical Impression: Epigastric pain Vomiting Qualifiers: Vomiting type: unspecified Vomiting Intractability: non-intractable Nausea presence: with nausea Qualified Code(s): R11.2 - Nausea with vomiting, unspecified Condition: Stable Disposition: HOME, SELF-CARE Additional Instructions: Please follow up with your primary care tomorrow and GI for possible upper endoscopy (scope) ABDOMINAL PAIN: There are many causes of abdominal pain. Pain can mean a serious problem requiring surgery (such as appendicitis). It can also be an innocent problem that goes away on its own (such as a viral infection). Often, time must pass to determine the cause of pain. The physician does not feel that hospitalization is necessary, at present. Things may change within the next 24 hours. Call the doctor or come back for re- examination if any problems occur, such as: (1) Pain that becomes more severe, steady, or becomes concentrated in one specific area. Also, pain that is more severe with movement or coughing. (2) Vomiting that persists or becomes more frequent. (3) Blood in the vomitus, urine, or bowel movements. Blood in the stool may have a tarry or black appearance. (4) Shaking chills or fever greater than 100 degrees F. (5) The abdomen becomes more distended or swollen. (6) Bowel movements cease. (7) Failure to improve as expected. NORMAL EXAM AND WORKUP: At this time, your examination and workup show no significant abnormality. No significant abnormal physical findings are noted. All laboratory, EKG, and imaging (x-ray, CT scans, ultrasound) studies that were ordered show no significant abnormality. Although your examination and all studies that were ordered showed no significant abnormal finding, there are no examinations and no studies that are 100% accurate. There is always the possibility that some abnormality could exist and not be detected with physical examination or within the limits and capabilities of laboratory and other studies. You should return or follow up as you were instructed on your visit today for further evaluation if your symptoms do not resolve. ANTINAUSEA MEDICATION: You have been given a medication to suppress nausea and vomiting. This type of medication can be given as a shot, pill, or suppository. It will usually last for many hours. Pills and shots usually last six to eight hours, suppositories last about 12 hours. For the typical illness, only one or two doses of the medication may be necessary. Mild lightheadedness may occur. This type of medicine can cause drowsiness. Do not drive or operate dangerous machinery while under its influence. Do not mix with alcohol. See your doctor at once if you have muscle spasms or tightness, or uncontrollable motions (particularly of the neck, mouth, or jaw). Persistent vomiting or severe lightheadedness should also be evaluated by the physician. FOLLOW-UP CARE: If you have been referred to a physician for follow-up care, call the physician s office for an appointment as you were instructed or within the next two days. If you experience worsening or a significant change in your symptoms, notify the physician immediately or return to the Emergency Department at any time for re-evaluation. Prescriptions: Ondansetron HCl [Zofran 4 mg Tablet] 1 - 2 tab PO Q4H PRN #20 tablet PRN Reason: Pantoprazole Sodium [Protonix] 40 mg PO DAILY #30 tablet. Promethazine HCl [Phenergan 25 mg Tablet] 1 - 2 tab PO Q6H PRN #15 tablet PRN Reason: Sucralfate [Carafate 1 gm Tablet] 1 gm PO ACHS #120 tablet Forms: Return to Work Referrals: KATH SANTOYO MD [Primary Care Provider] - Follow up tomorrow INDIA STEVENS MD [ACTIVE STAFF] - Follow up in 3-5 days
--- NOTE | 2017-01-02 20:56 | RADIOLOGY REPORT (SQ) ---
EXAM DESCRIPTION: ACUTE ABDOMEN SERIES COMPLETED DATE/TIME: 01/02/2017 8:45 pm REASON FOR STUDY: abdominal pain with vomiting COMPARISON: None. NUMBER OF VIEWS: Three views. TECHNIQUE: Frontal chest, supine abdomen and upright/decubitus abdomen radiographic images acquired. LIMITATIONS: None. FINDINGS: CHEST: Lungs clear of infiltrates. FREE AIR: None. No abnormal gas collections. BOWEL GAS PATTERN: Nonobstructive pattern. No dilated loops or air fluid levels. CALCIFICATIONS: No suspicious calcifications. HARDWARE: None in the abdomen. SOFT TISSUES: No gross mass or suggestion of organomegaly. BONES: No acute fracture. No worrisome bone lesions. OTHER: No other significant finding. IMPRESSION: NO RADIOGRAPHIC EVIDENCE FOR ACUTE ABDOMINAL DISEASE. TECHNICAL DOCUMENTATION: JOB ID: [id number] [employer]- All Rights Reserved
[2017-01-02 22:15] VITALS: BP 137/65
== END 2017-01-02 22:15 | disposition home or self-care (01) ==
LOC: ER 17:20
DX: R11.2 Nausea with vomiting, unspecified (principal); R10.13 Epigastric pain; R19.4 Change in bowel habit; F17.200 Nicotine dependence, unspecified, uncomplicated; Z88.8 Allergy status to other drugs, medicaments and biological substances
CPT/HCPCS: 99284; 96361; 96374; 36415; 83690; 85025; 80053; 74022; J3490; S0164; J7030